=== PATIENT | female | born 1985 | race African-American/Black ===

== ENCOUNTER 2024-10-22 14:04 | Emergency (ER) | payer OTHER ==
[~2024-10-22] VITALS: Ht 165.1 cm; Wt 65.0 kg
[2024-10-22 14:05] VITALS: O2SAT 98
[2024-10-22 14:59] LABS: BASOPHILS % 0.6 % (0.0-2.0); EOSINOPHILS % 1.8 % (0.0-5.0); HEMATOCRIT. 33.3 % (36.0-48.0); HEMOGLOBIN. 11.0 g/dL (12.0-16.0); LYMPHOCYTES % 24.1 % (20.0-50.0); MEAN PLATELET VOLUME 8.3 fl (7.4-10.4); MONOCYTES % 6.7 % (2.0-8.0); NEUTROPHILS % 66.8 % (40.0-76.0); PLATELET 319 x1000/uL (130-400); RED BLOOD CELL COUNT 3.79 mill/uL (4.2-5.4); RED CELL DISTRIBUTION WIDTH 17.2 % (11.6-14.6)
[2024-10-22 15:09] LABS: HCG SCREEN NEGATIVE
[2024-10-22 15:12] LABS: INR 1.0
[2024-10-22 15:13] LABS: CREATININE 1.2 mg/dL (0.6-1.0); UREA NITROGEN BLOOD 12 mg/dL (9-23)
[2024-10-22] MEDS: SODIUM CHLORIDE 0.9% 1,000 ML IV ONE (15:47)
[2024-10-22] MEDS: KETOROLAC 15MG/ML VIAL IV ONE (15:48)
[2024-10-22] MEDS: ONDANSETRON HCL 4MG/2ML INJ IV ONE (15:48)
[2024-10-22 17:01] LABS: COLOR URINE YELLOW (YELLOW); GLUCOSE URINE NEGATIVE (NEGATIVE); KETONES URINE 1+ (NEGATIVE); LEUKOCYTE ESTERASE URINE NEGATIVE (NEGATIVE); NITRITE URINE NEGATIVE (NEGATIVE); OCCULT BLOOD URINE TRACE (NEGATIVE); PH URINE 8.5 (4.5-8.0); PROTEIN URINE 1+ (NEGATIVE); SPECIFIC GRAVITY URINE 1.030 (1.005-1.030); UROBILINOGEN URINE 1.0 E.U./dL (0.2-1.0)
[2024-10-22 17:26] LABS: CLARITY URINE SL HAZY (CLEAR)
[2024-10-22 17:27] LABS: RBC URINE 0-2 /hpf (0-2); SQUAMOUS EPITHELIAL CELL URINE 2+ /lpf (RARE/1+)
[2024-10-22 17:28] LABS: BACTERIA URINE 1+; MUCUS URINE 1+ /lpf (< = 2+)
[2024-10-22 18:17] VITALS: BP 122/66; PULSE 74; RESP 15; TEMP 36.9; O2SAT 99
== END 2024-10-22 18:18 | disposition home or self-care (01) ==
LOC: ER 14:04
DX: D25.9 Leiomyoma of uterus, unspecified (principal); N83.209 Unspecified ovarian cyst, unspecified side; Z98.890 Other specified postprocedural states
CPT/HCPCS: 99285; 76856; 96374; 76830; 96361; 96375; 80048; 81003; 84703; 85025; 85610; 85730; 86850; 86900; 86901; 36415; 76857; J1885; J2405; J7030